=== PATIENT | male | born 1990 ===

== ENCOUNTER 2018-12-05 21:29 | Emergency (ER) | payer SELFPAY ==
[~2018-12-05] VITALS: Ht 193 cm; Wt 81.2 kg
[2018-12-05 22:01] VITALS: BP 119/59; PULSE 140; RESP 20; Ht 193 cm; Wt 81.2 kg
== END 2018-12-06 00:17 | disposition left against medical advice (07) ==
LOC: FTE 21:29
DX: Z53.21 Procedure and treatment not carried out due to patient leaving prior to being seen by health care provider (principal)